=== PATIENT | female | born 1960 | race Caucasian/White ===

== ENCOUNTER 2016-08-27 10:32 | Emergency (ER) | payer BC ==
[~2016-08-27] VITALS: Ht 170.2 cm; Wt 79.1 kg
[2016-08-27 10:43] VITALS: TEMP 97.1
[2016-08-27] MEDS ORDERED: ESTRACE0.5 MG PO (10:55)
[2016-08-27] MEDS ORDERED: SYNTHROID0.1 MG/TAB PO (10:58)
[2016-08-27] MEDS ORDERED: SYNTHROID0.112 MG/T PO (10:59)
[2016-08-27] MEDS ORDERED: WOMEN'S DAILY1 TAB PO (11:01)
[2016-08-27] MEDS ORDERED: VITAMIN D 1001000 IU PO (11:01)
[2016-08-27] MEDS ORDERED: MAGNESIUM ELEM300 MG PO (11:04)
[2016-08-27 11:31] LABS: PROTHROMBIN TIME 11.5 SECONDS (9.7-12.8)
[2016-08-27 11:34] LABS: PARTIAL THROMBOPLASTIN TIME 33.4 SECONDS (26.0-37.0)
[2016-08-27 11:36] LABS: ADJUSTED CALCIUM 9.7 mg/dL (8.4-10.2); ALANINE AMINOTRANSFERASE 41 U/L (9-52); ALBUMIN 4.2 gm/dL (3.5-5.0); ALKALINE PHOSPHATASE 111 U/L (50-136); ANION GAP 10 mmol/L (7-16); BILIRUBIN,TOTAL 0.7 mg/dL (0.0-1.0); BLOOD UREA NITROGEN 17 mg/dL (7-17); CALCIUM 9.9 mg/dL (8.4-10.2); CARBON DIOXIDE 28 mmol/L (22-30); CHLORIDE 100 mmol/L (98-107); CREATININE, serum 0.79 mg/dL (0.52-1.25); GLUCOSE 84 mg/dL (74-106); HEMATOCRIT 45.3 % (37.0-47.0); HEMOGLOBIN 15.1 g/dl (12.5-16.0); MEAN CELL VOLUME 86 fl (80.0-100.0); MEAN CORPUSCULAR HEMOGLOBIN 29 pg (27.0-31.0); MEAN CORPUSCULAR HGB CONC 33 g/dl (33.0-37.0); MEAN PLATELET VOLUME 9.8 fl (7.4-10.4); PLATELET COUNT 259 K/mm3 (130-400); POTASSIUM 4.1 mmol/L (3.4-5.0); RED BLOOD COUNT 5.29 M/mm3 (4.10-5.30); REDCELL DISTRIBUTION WIDTH-CV 13.2 % (11.5-14.5); SODIUM 138 mmol/L (137-145); TOTAL PROTEIN 7.5 gm/dL (6.4-8.2); WHITE BLOOD COUNT 7.2 K/mm3 (4.8-10.8)
[2016-08-27 11:40] LABS: ADD PATHOLOGY DIFF REVIEW NO
[2016-08-27 11:48] LABS: TROPONIN-I < 0.012 ng/mL (0.000-0.034)
[2016-08-27 13:16] LABS: BAND 1 % (0-10); BASOPHIL 3 % (0-2); EOSINOPHIL 1 % (0-4); NEUTROPHILS 70 % (42.0-75.2); TOTAL CELLS COUNTED 100
[2016-08-27 13:17] LABS: PLATELET ESTIMATE NORMAL (NORMAL)
[2016-08-27 14:15] VITALS: BP 121/78; PULSE 73
[2016-10-19] MEDS ORDERED: ESTRACE0.5 MG PO (08:46)
[2016-10-19] MEDS ORDERED: CALCIUM-MAGNES1 EAC1 PO (08:48)
[2016-10-19] MEDS ORDERED: ASPIRIN E.C. 8181 MG PO (08:48)
== END 2016-08-27 14:15 | disposition home or self-care (01) ==
LOC: COL.ER 10:32
PROVIDERS: Emergency Medicine
DX: R07.89 Other chest pain (principal)

== ENCOUNTER → 2016-10-20 | Outpatient (CLI) | payer BC ==
[~2016-10-20] VITALS: Ht 168.9 cm; Wt 79.5 kg
[~2016-10-20] MED LIST: ASPIRIN E.C. 8181 MG PO; CALCIUM-MAGNES1 EAC1 PO; ESTRACE0.5 MG PO; MAGNESIUM ELEM300 MG PO; SYNTHROID0.1 MG/TAB PO; SYNTHROID0.112 MG/T PO; VITAMIN D 1001000 IU PO; WOMEN'S DAILY1 TAB PO
[2016-10-20 06:44] VITALS: BP 142/83; PULSE 76
[2016-10-20 07:53] VITALS: BP 127/69; PULSE 78
[2016-10-20 07:54] VITALS: BP 159/86; PULSE 114
[2016-10-20 07:55] VITALS: BP 140/75; PULSE 98
[2016-10-20 07:56] VITALS: BP 144/84; PULSE 93
== END ==
LOC: COL.CARD 09-27 06:30
DX: R07.89 Other chest pain (principal)
CPT/HCPCS: A9502; J2785

== ENCOUNTER → 2017-06-19 | Outpatient (CLI) | payer BC | LOC: MC.RAD 07:00 | DX: Z12.31 Encounter for screening mammogram for malignant neoplasm of breast (principal) ==

== ENCOUNTER → 2018-07-10 | Outpatient (CLI) | payer BC | LOC: MC.RAD 11:26 | DX: Z12.31 Encounter for screening mammogram for malignant neoplasm of breast (principal) ==

== ENCOUNTER → 2018-11-16 | Outpatient (CLI) | payer BC | LOC: COL.RAD 07:23 | DX: R74.8 Abnormal levels of other serum enzymes (principal); R19.4 Change in bowel habit ==

== ENCOUNTER → 2020-11-20 | Outpatient (CLI) | payer BC | LOC: MC.RAD 08:45 | DX: Z12.31 Encounter for screening mammogram for malignant neoplasm of breast (principal) ==

== ENCOUNTER → 2021-12-09 | Outpatient (CLI) | payer BC | LOC: MC.RAD 12:54 | DX: N64.89 Other specified disorders of breast (principal); R92.8 Other abnormal and inconclusive findings on diagnostic imaging of breast ==

== ENCOUNTER → 2024-02-27 | Outpatient (CLI) | payer BC | LOC: MC.RAD 07:00 | DX: Z12.31 Encounter for screening mammogram for malignant neoplasm of breast (principal) ==